=== PATIENT | male | born 1975 | race Caucasian/White ===

== ENCOUNTER → 2017-11-14 | Outpatient (CLI) | payer MEDICARE ==
[~2017-11-14] MED LIST: BACLOFEN 10MG T10 MG PO; BP MED; CYMBALTA30 MG PO; DILAUDID 2 MG TA2 MG PO; DILAUDID2 MG PO; DOLOPHINE HCL10 MG PO; DOLOPHINE HCL5 MG PO; DOXYCYCLINE 10100 M1 PO; ELAVIL PO; FLAGYL 250 MG250 MG PO; FLAGYL500 MG PO; METFORMIN HCL500 MG PO; METHADONE HCL 110 M1 PO; NORCO 5-325 TA1 EACH PO; NOVOLOG100 UNIT/1 SUBQ; OXYCODONE HCL5 M1 PO; PREDNISOLONE; PREDNISONE PO; REMICADE IV; STELARA45 MG/0.5 IV; VITAMIN D1000 UNI1 PO; VOLTAREN100 GM TP; XIFAXAN 200 MG200 M1 PO
--- NOTE | 2017-11-19 07:21 | PAINCON ---
[address] [address] PAIN MANAGEMENT CONSULTATION Name: ULYSSES LOCKETT JR [id number] Admission: 11/14/17 Attend Phys: Patria Zuñiga Discharge: Date of : 79 Report #: [id number] THIS REPORT FOR: //name// CC: Valdo Desai DATE OF SERVICE: 11/14/2017 The patient is a 42-year-old gentleman, typically treated for Crohn disease and rheumatoid arthritis affecting knees, hips and wrists, requiring high risk complex medication management. Last seen in the pain clinic 09/19/2017. I continued the patient on baseline medication including methadone 10 mg 2 in the morning, 1 at noon, and 2 at night; hydromorphone 2 mg b.i.d. for breakthrough pain. Started baclofen 10 mg t.i.d. for some ongoing spasm. He returns to pain clinic today. We had a prolonged visit, greater than 30 minutes was spent with the patient today reviewing therapeutic options and discussing concern for increasing depression. The patient notes he has been having some increasing abdominal issues recently, increasing abdominal pain and blood in the stool. His disease modifying agents including Remicade and Humira have been unchanged. He does note that his mother with whom he has close contact notes he has been more "mancilla" lately. 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 His mother is active in their life pretty much daily. He himself feels that he is a little more depressed and feeling anxious. He notes his abdominal pain remains unchanged and relatively problematic. He thinks that the baclofen may be helping a little bit with the prior noted spasm issues. He rates his subjective pain score a 6 on the Visual Analog Scale. Feels medication probably provides about 50% improvement of his pain and functional status. PHYSICAL EXAMINATION: Shows 6 feet, 2 inches, 244 pound gentleman, BMI is relatively stable at 31.4 kg per meter squared. Blood pressure 126/90, pulse 92, respirations 16. Alert and oriented to person, place and time, judged to be a reasonable historian. Rises from chair using armrest, moderately antalgic gait, diffuse abdominal tenderness. No discrete focal trigger points are noted. We reviewed the fact that opiate medications are being used to provide analgesia adequate to support activities of daily living, not attempting to achieve a specific pain score on the 0-10 Visual Analog Scale. The current opiate medications are providing sufficient analgesia to allow the patient to participate in activities of daily living. The patient is not exhibiting any aberrant behavior suggestive of drug diversion. The patient is not having any adverse reactions to medications. The patient is not suffering from daytime somnolence or mental acuity changes. The patient is managing [place] [address] PAIN MANAGEMENT CONSULTATION Name: ULYSSES LOCKETT JR Room: [facility]#: [id number] Admission: 11/14/17 Attend Phys: Patria Zuñiga Discharge: Date of : 79 Report #: [id number] constipation with appropriate uvdw-zxg-fdyjxth agents and dietary considerations. The patient was counseled on concern for caution with operating a motor vehicle while using opiate medications. A physical exam was performed and the patient's functional status was evaluated. All patients with back pain were advised against the bed rest greater than 4 days and were advised to return to normal activities. Pain score assessment was noted and the treatment plan was reviewed with the patient. All current medications, both prescribed and OTC were reviewed and reconciled on the electronic medical record. Tobacco screening was accomplished and smoking cessation was advised when indicated. BMI was noted and diet/exercise modification was recommended for all patients following outside normal parameters. I reviewed with the patient today their responsibilities to safeguard prescription medications, reviewed their responsibility to utilize medications only as prescribed by the physician. They are to seek and receive pain medications only from 1 physician group ( [facility]). They are to use 1 pharmacy and keep the clinic informed if they change pharmacies. Their responsibilities include making followup visits in a timely fashion and to avoid abrupt discontinuation of medication usage. Their responsibilities further include bringing their medications (bottles from the pharmacy with residual pills) to the visit for possible confirmation of pill counts and the patient understands it is their responsibility to submit to random drug screens to ensure both that the medications prescribed are present, and that no other controlled substances are present. All prescriptions provided today were generated electronically. ASSESSMENT: Chronic abdominal pain, rheumatoid arthritis requiring high risk complex medication management, new diagnosis of some ongoing and situational anxiety and depression. RECOMMENDATION: We reviewed the opiate consent to treat contract. It has been greater than a year since our last contract was signed. We reviewed the patient's risks and responsibilities regarding keeping the medication safeguarded, especially with teenage children in the house, risks for opiate habituation, tolerance and overdose. I have renewed hydromorphone 2 mg b.i.d., limit 60 tablets for 30 days; baclofen 10 mg t.i.d. We started Cymbalta 30 mg 1 a day, continue methadone 10 mg 2 in the morning, 1 at noon, and 2 at night. I have taken the liberty of writing for 2 months of current medication. We may increase Cymbalta to 60 mg at next visit if needed. Pain impact score is pretty high, averaging about 59/70. [address] [place] [address] PAIN MANAGEMENT CONSULTATION Name: ULYSSES LOCKETT JR Room: [facility]#: [id number] Admission: 11/14/17 Attend Phys: Patria Zuñiga Discharge: Date of : 79 Report #: [id number] Discharged in good and stable condition after a 25+ minute visit was spent reviewing therapeutic options, new diagnosis of depression and treatment options. Last random drug screen was in March. <ELECTRONICALLY SIGNED> By: Vinayak Desai DO 11/19/17 0721 [id number] Desai DO /nt
== END ==
LOC: M.PC 02:49
DX: K50.90 Crohn's disease, unspecified, without complications (principal); M06.89 Other specified rheumatoid arthritis, multiple sites; F41.9 Anxiety disorder, unspecified; F32.9 Major depressive disorder, single episode, unspecified; Z79.899 Other long term (current) drug therapy

== ENCOUNTER → 2018-01-09 | Outpatient (CLI) | payer MEDICARE ==
--- NOTE | 2018-01-14 08:02 | PAINCON ---
[address] [address] PAIN MANAGEMENT CONSULTATION Name: ULYSSES LOCKETT JR Room: [facility]#: [id number] Admission: 01/09/18 Attend Phys: Patria Zuñiga Discharge: Date of : 79 Report #: [id number] THIS REPORT FOR: //name// CC: Valdo Desai DATE OF SERVICE: 01/09/2018 The patient is a very pleasant 42-year-old gentleman being treated for Crohn's disease, rheumatoid arthritis affecting hands, hips and wrists, requiring complex medication management. Last seen in the Pain Clinic on 11/14/2017, continued on baseline medication. Last random drug screen 04/04/2017 was positive for prescribed medication. The patient is stable on methadone 10 mg, 2 in the morning, 1 at noon, and 2 at night; hydromorphone 2 mg b.i.d. This equates to a supratherapeutic load of opiate, roughly 215 mg MS. Does use Cymbalta 30 mg daily and baclofen for spasm. He returns to the Pain Clinic today noting pain continues to be problematic. Medications are helpful to allow participate in activities of daily living, rates the pain a 4-5 on a VAS, reports "no changes" since her last visit. PHYSICAL EXAMINATION: Shows 6 feet 2 inches, 246-pound gentleman, BMI is 31 kg/m2. Blood pressure 120/78, pulse 89, and respirations 16. Rises from chair using armrest, modestly antalgic gait. Has diffuse tenderness in the wrist, ankles and knees. No discrete trigger points are noted. Gait is minimally antalgic. The patient is status post colectomy with J pouch. He has 15-20 stools a day, often heme positive. There is increasing diabetic neuropathy in his feet. Otherwise, notes he is functional with current medication. When I took over his care, he had been on high dose OxyContin, stated he had a lot of "highs and lows" without medication. He is very stable on the methadone. I talked about trying to wean his opiate load over time, I talked about concerns for opiate-induced hyperalgesia. I have taken the liberty of continuing current prescription medication unchanged, methadone 10 mg 2 in the morning, 1 at noon, and 2 at night, though suggest he try weaning 1 tablet, 2 tablets in the morning, 1 at noon and 1 at night over the next month. We can continue weaning further as able. Discharged in good and stable condition. Follow up in 2 months for reevaluation. <ELECTRONICALLY SIGNED> By: Vinayak Desai DO 01/14/18 0802 1535 1942Vinayak Desai DO /nt
== END ==
LOC: M.PC 00:32
DX: M19.042 Primary osteoarthritis, left hand (principal); M19.041 Primary osteoarthritis, right hand; M16.0 Bilateral primary osteoarthritis of hip; M19.032 Primary osteoarthritis, left wrist; M19.031 Primary osteoarthritis, right wrist; K50.90 Crohn's disease, unspecified, without complications; Z79.899 Other long term (current) drug therapy

== ENCOUNTER → 2018-03-06 | Outpatient (CLI) | payer MEDICARE ==
--- NOTE | 2018-03-07 07:13 | PAINCON ---
[address] [address] PAIN MANAGEMENT CONSULTATION Name: ULYSSES LOCKETT JR [id number] Admission: 03/06/18 Attend Phys: Patria Zuñiga Discharge: Date of : 79 Report #: [id number] THIS REPORT FOR: //name// CC: Valdo Desai DATE OF SERVICE: 03/06/2018 PAIN CLINIC NOTE The patient is a very pleasant 42-year-old gentleman, has been under my care for the past decade, initially seen in 2007. He has Crohn's disease, rheumatoid arthritis affecting his hands, hips and wrists, requires complex medication management. When he came to me, he was utilizing OxyContin 40 mg t.i.d. roughly equivalent to 180 mg of morphine. We have rotated medication over time. Currently, he is utilizing methadone 10 mg 2 in the morning, 1 at noon, and 2 at night, this is equivalent to an ongoing supratherapeutic load of opiate around 200 mg. With this; however, he has been remarkably stable, does not have the "highs and lows" he had with the OxyContin. He is quite functional. He is a single parent raising 2 sons. I believe one starting the eighth grade and one in high school. 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 He has been medically disabled for quite some time due to Crohn's. He has a 15-20 liquid stools a day. He has had multiple abdominal surgeries. He has been stable on baseline narcotic unchanged for some time. He is seen today in the company of his mother who is supportive. We had a prolonged visit today, greater than 50% of the 30-minute visit was spent counseling the patient, discussing therapeutic options and ongoing care. The patient tells me that his subjective pain score is 5 on a VAS. He is changing his disease modifying agent to Stelara. He is hopeful that this will give him a little better control. PHYSICAL EXAMINATION: Shows 6 feet 2 inches, 240 pounds gentleman, BMI is 31 kilograms per meter squared, blood pressure 130/92, pulse 102, and respirations 16. Alert and oriented to person, place and time, judged to be a reasonable historian. Rises from chair using armrest. Gait is generally tandem. Diffuse tenderness across the low back. There is little osseous hypertrophy in the knees. Abdominal exam is deferred. We reviewed the fact that opiate medications are being used to provide analgesia adequate to support activities of daily living, not attempting to achieve a specific pain score on the 0-10 Visual Analog Scale. The current opiate medications are providing sufficient analgesia to allow the patient to participate in activities of daily living. The patient is not exhibiting any aberrant behavior suggestive of drug diversion. The patient is not having any adverse reactions to medications. The patient [place] [address] PAIN MANAGEMENT CONSULTATION Name: ULYSSES LOCKETT JR Room: [facility] Mami#: [id number] Admission: 03/06/18 Attend Phys: Patria Zuñiga Discharge: Date of : 79 Report #: [id number] somnolence or mental acuity changes. The patient is managing opiate-induced constipation with appropriate eqoy-zdv-esrvxim agents and dietary considerations. The patient was counseled on concern for caution with operating a motor vehicle while using opiate medications. A physical exam was performed and the patient's functional status was evaluated. All patients with back pain were advised against the bed rest greater than 4 days and were advised to return to normal activities. Pain score assessment was noted and the treatment plan was reviewed with the patient. All current medications, both prescribed and OTC were reviewed and reconciled on the electronic medical record. Tobacco screening was accomplished and smoking cessation was advised when indicated. BMI was noted and diet/exercise modification was recommended for all patients following outside normal parameters. I reviewed with the patient today their responsibilities to safeguard prescription medications, reviewed their responsibility to utilize medications only as prescribed by the physician. They are to seek and receive pain medications only from 1 physician group ( [facility]). They are to use 1 pharmacy and keep the clinic informed if they change pharmacies. Their responsibilities include making followup visits in a timely fashion and to avoid abrupt discontinuation of medication usage. Their responsibilities further include bringing their medications (bottles from the pharmacy with residual pills) to the visit for possible confirmation of pill counts and the patient understands it is their responsibility to submit to random drug screens to ensure both that the medications prescribed are present, and that no other controlled substances are present. All prescriptions provided today were generated electronically. The patient does use nicotine via tobacco chew, was cautioned about this and urged discontinuation. We did get a buccal swab today. No aberrant behavior suggestive of drug diversion, simply complying with opiate consent to treat contract. It has been greater than a year since last drug screen. ASSESSMENT: Chronic abdominal pain, Crohn's disease, rheumatoid arthritis requiring complex medication management. Rheumatoid arthritis affecting hands, hips and wrists. RECOMMENDATION: Long discussion with the patient and his mother today. We would like to continue methadone 10 mg 2 in the morning, 1 at noon and 2 at night. Hopefully, after the patient rotates his Crohn's agent to [facility], this may help some with the rheumatoid arthritis pain. He can drop his methadone down to 1 in the morning, 1 at noon and 2 at night. We will continue hydromorphone rare use, 2 mg b.i.d., limit 60 tablets for 30 days. Continue Cymbalta unchanged 30 mg daily, baclofen 10 mg t.i.d. [place] [address] PAIN MANAGEMENT CONSULTATION Name: ULYSSES LOCKETT JR Room: [facility]#: [id number] Admission: 03/06/18 Attend Phys: Patria Zuñiga Discharge: Date of : 79 Report #: [id number] The patient discharged in good stable condition today. I have taken the liberty of writing for 3 months of current medication to enable him to get in to Dr. Bishnu Nava's clinic. Again, a prolonged visit today, greater than 50% of this near 30-minute visit spent reviewing the patient's medical history, discussing risks, benefits of opiate use, concerns for supratherapeutic opiate load, desire to try and wean methadone as able, we did get a buccal swab today. No aberrant behavior suggestive of drug diversion. <ELECTRONICALLY SIGNED> By: Vinayak Desai DO 03/07/18 0713 1519 [id number] Desai DO /nt
== END ==
LOC: M.PC 04:01
DX: K50.90 Crohn's disease, unspecified, without complications (principal); M06.89 Other specified rheumatoid arthritis, multiple sites; G89.29 Other chronic pain; R10.9 Unspecified abdominal pain; Z79.899 Other long term (current) drug therapy

== ENCOUNTER → 2018-05-30 | Outpatient (CLI) | payer MEDICARE ==
--- NOTE | 2018-06-05 16:41 | PAINCON ---
[address] [address] PAIN MANAGEMENT CONSULTATION Name: ULYSSES LOCKETT JR Room: [facility].#: [id number] Admission: 05/30/18 Attend Phys: Kaitlin Nava MD Discharge: Date of : 79 Report #: [id number] THIS REPORT FOR: //name// CC: Valdo Nava DATE OF SERVICE: 05/30/2018 FOLLOWUP COMPLAINT: Here for medication renewal. FOLLOWUP HISTORY: The patient is a 42-year-old gentleman who has been followed in the pain clinic because of chronic pain involving Crohn's disease and diabetes. The patient has been followed by Dr. Vinayak Desai for about a decade. He was initially seen in 2007. He has Crohn's disease and rheumatoid arthritis affecting his hands, hips, wrists, has required complex medical management. He has utilized OxyContin 40 mg t.i.d. in the past. This has been changed. He feels that methadone is more effective. It last longer with less of the variation in pain. He has been using methadone 10 mg 2 in the morning, 1 at noon, and 2 mg at night. He has been using this dose, which is about 200 mg morphine equivalents; however, he has been stable with this medication. He is a single parent rising 2 sons. He tries to remain active. Does have a J pouch. Some of his medications "come out the same way they went in." Has some baseline back pain as a result of his Crohn's disease. His mother is present. He has noted some problems with numbness in his feet. He is not having problems with his hands. He feels that he is in a conundrum. He is in a catch 22. If he takes his medications, he notes some upset in his GI tract without them, pain is even worse. States that he had a colonoscopy a few months ago. Continues to have bloody stools. ALLERGIES: LORAZEPAM, MERCAPTOPURINE, FENTANYL. CURRENT MEDICATIONS: Baclofen 10 mg tablets t.i.d., Voltaren gel 5 times daily, Dilaudid 2 mg b.i.d., metformin 500 mg b.i.d., methadone 10 mg 2 tablets a.m. 1 midday and 2 at bedtime, Naresh. PAST MEDICAL HISTORY: 1. Ulcerative colitis with J pouch. 2. Colon surgery. 3. Multiple bowel problems. SOCIAL HISTORY: He is . He is a nonsmoker. Denies use of alcohol. LABORATORY DATA: No new lab values were available at the time of our interview. PAIN CLINIC ASSESSMENT: [place] [address] PAIN MANAGEMENT CONSULTATION Name: ULYSSES LOCKETT JR Room: [facility]#: [id number] Admission: 05/30/18 Attend Phys: Kaitlin Nava MD Discharge: Date of : 79 Report #: [id number] 1. History of osteoarthritis. Does have arthritic changes in his hands and hips. 2. Height 6 feet 2 inches, weight 237 pounds, BMI is 30.2. 3. Vital signs: Blood pressure 137/94. heart rate 114, respiratory rate 16, room air saturation 99%, temperature 97.6. Pain score 4-5/10 can rise to a level of 8-9. 4. Fall risk. The patient has not fallen in the last 3 months. 5. Blood thinner. The patient is not on a blood thinning medication. 6. Hypertension. The patient states she does suffer from hypertension, but is not taking medications at this point. 7. Opioid medications. The patient has been using opioid medications to help control his pain, [facility]. 8. Risk assessment tool. 9. Functional assessment tool. 10. Recreational drug use. The patient denies use of recreational drugs. 11. Tobacco: The patient denies use of tobacco, but does chew tobacco, has chewed tobacco since age 20. 12. Alcohol. Denies use of alcoholic beverages. PHYSICAL EXAMINATION: GENERAL: The patient is a well-developed, well-nourished white male. Appears his stated age. He is alert and oriented x 3. Affect is appropriate. Speech is fluent. HEENT: Normocephalic, atraumatic. Extraocular muscles intact. Sclerae nonicteric. Hearing within normal limits. Mucous membranes are moist. NECK: With good range of motion without bruits or JVD. No adenopathy. CHEST: Clear to auscultation. HEART: Regular rate. S1, S2. ABDOMEN: Slightly protuberant. MUSCULOSKELETAL: Without scoliosis, kyphosis or lordosis. Upper extremity muscle strength is judged to be 5/5 for the major muscle groups. Lower extremity muscle strength is judged to be 5/5 for the lower extremity. The patient does have some perception of numbness in his feet. States that he is noticing an escalating or climbing, a numbing sensation of his legs in a stocking distribution at this juncture. IMPRESSION: 1. Chronic pain treated with a complex medical regimen with history of Crohn's disease/ulcerative colitis. 2. Ulcerative colitis with J pouch. 3. Colon surgery. 4. Multiple bowel problems. RECOMMENDATIONS: We discussed treatment option with the patient, we will continue with his current medical regimen. He does have quite a complex regimen. He feels that the oxycodone in the past was helpful. It cause less [facility] [address] [place] [address] PAIN MANAGEMENT CONSULTATION Name: ULYSSES LOCKETT Ligia MALDONADO Room: [facility]#: [id number] Admission: 05/30/18 Attend Phys: Kaitlin Nava MD Discharge: Date of : 79 Report #: [id number] discomfort with the stomach, but overall he feels that things are going reasonably well with the methadone medication. We will continue with this medication. He will call us if he has any problems. We would like to thank you for letting us participate in his care. We hope he continues to improve. <ELECTRONICALLY SIGNED> By: Kaitlin Nava MD 06/05/18 1641 [id number]. Bishnu Nava MD /nt
== END ==
LOC: M.PC 03:19
DX: G89.29 Other chronic pain (principal); K51.90 Ulcerative colitis, unspecified, without complications; Z79.899 Other long term (current) drug therapy

== ENCOUNTER → 2018-08-20 | Outpatient (CLI) | payer MEDICARE ==
--- NOTE | 2018-08-21 15:35 | PAINCON ---
[facility] [address] [place] [address] PAIN MANAGEMENT CONSULTATION Name: ULYSSES LOCKETT JR [facility] [id number] Admission: 08/20/18 Attend Phys: Kaitlin Nava MD Discharge: Date of : 77 Report #: [id number] THIS REPORT FOR: //name// CC: Valdo Nava DATE OF SERVICE: 08/20/2018 REASON FOR VISIT: Crohn's disease. HISTORY: The patient is a 42-year-old gentleman who has a history of Crohn's disease. He also has diabetes. He has been followed in the pain clinic since 2007. He also has rheumatoid arthritis affecting his hands, hips, wrist and requires complex medical management. Finds that OxyContin has been used in the past. He was up to 40 mg t.i.d. He feels that methadone has been more effective. Feels that it has been more efficacious. Finds that use of this in the morning, noon and at night is beneficial. He is a single parent, raising 2 sons. He tries to remain active. He does have a J pouch. States that his medications has some problems with absorption. "Oftentimes comes out the way it went in". Has some baseline back pain as a result of the Crohn's disease. Has some numbness in his feet. Notes that he is in a conundrum. If he takes his medications, he notes that some GI upset without them his pain is worse. ALLERGIES: LORAZEPAM, MERCAPTOPURINE, and FENTANYL. CURRENT MEDICATIONS: Baclofen 10 mg p.o. t.i.d., Voltaren gel 5 mg daily, Dilaudid 2 mg b.i.d., metformin 500 mg b.i.d., methadone 10 mg 2 tablets q.a.m., one midday, 2 at bedtime, Stelara. PAST MEDICAL HISTORY: Ulcerative colitis with J pouch. ASSESSMENT: 1. Colon surgery. 2. Multiple bowel problems. PAIN CLINIC ASSESSMENT: 1. History of osteoarthritis. The patient does have osteoarthritic changes in his hands and hips. 2. Height 6 feet 2 inches, weight 245 pounds, BMI is 31.5. 3. Vital signs: Blood pressure 130/99, heart rate 94, respiratory rate 16, room air saturation 95%. Temperature 98.7. 4. Pain intensity: 4/10. 5. Fall risk. The patient has not fallen in the last 3 months. 6. Blood thinner. The patient is not on a blood thinning medication. 7. Hypertension. The patient has [place] [address] PAIN MANAGEMENT CONSULTATION Name: ULYSSES LOCKETT JR Room: [facility]#: [id number] Admission: 08/20/18 Attend Phys: Kaitlin Nava MD Discharge: Date of : 77 Report #: [id number] 8. Opioids greater than 6 weeks, the patient refuses medication from one source, the Pain Clinic. 9. Risk assessment tool. 10. Functional assessment tool. 11. Recreational drug use. The patient denies use of recreational drugs. 12. Tobacco: The patient does chew tobacco. We discussed the possible complication with chewing tobacco, which could cause mouth cancers. 13. Alcohol: The patient denies frequent use of alcoholic beverages. PHYSICAL EXAMINATION: GENERAL: The patient is a well-developed, well-nourished white male. Appears his stated age. He is alert and oriented x 3. His affect is appropriate. Speech is fluent. HEENT: Normocephalic, atraumatic. Extraocular eye muscles intact. Sclerae nonicteric. Hearing is within normal limits. Mucous membranes are moist. NECK: With good range of motion without bruits or JVD. No adenopathy. CHEST: Clear to auscultation. HEART: Regular rate. S1, S2. ABDOMEN: Nontender, slightly protuberant. MUSCULOSKELETAL: Without scoliosis, kyphosis or lordosis. Upper extremity muscle strength is judged to be 5/5 for the major muscle groups. Lower extremity muscle strength is judged to be 5/5 for the lower extremity. The patient has a perception of numbness in his feet. Feels that this is getting worse. Has numbness in his toes. Notes that there is an escalating numbing sensation in his legs in a stocking glove distribution. IMPRESSION: 1. Chronic pain treated with a complex medical regimen of opioid medications given the patient's history of Crohn's disease and ulcerative colitis. 2. Ulcerative colitis with J pouch. 3. Colonoscopy in the near future. The patient has noted some blood in his stool. 4. Precancerous state. The patient is to undergo the colonoscopy to be evaluated. 5. Multiple bowel problems. RECOMMENDATIONS: We discussed treatment options with the patient. At this juncture, we will continue with his medications. A script for his medications of hydromorphone 2 mg 1 p.o. b.i.d., baclofen 10 mg 1 p.o. t.i.d., methadone 10 mg 2 tablets a.m. one tablet at noon, and 2 tablets at bedtime. A script for the patient's medications have been written. He will call us if he has any [place] [address] PAIN MANAGEMENT CONSULTATION Name: ULYSSES LOCKETT JR Room: [facility].#: [id number] Admission: 08/20/18 Attend Phys: Kaitlin Nava MD Discharge: Date of : 77 Report #: [id number] problems. We would like to thank you for letting us participate in his care. We hope he continues to improve. <ELECTRONICALLY SIGNED> By: Kaitlin Nava MD 08/21/18 1535 [id number]. Bishnu Nava MD /nt
== END ==
LOC: M.PC 04:35
DX: K50.90 Crohn's disease, unspecified, without complications (principal); G89.29 Other chronic pain; Z79.891 Long term (current) use of opiate analgesic

== ENCOUNTER → 2018-11-12 | Outpatient (CLI) | payer MEDICARE, MEDICAID ==
[~2018-11-12] MED LIST changes: +CYMBALTA20 MG PO; +FLAGYL500 M1 PO; +PREDNISONE 10 M10 MG PO
--- NOTE | ~2018-11-12 | PAINCON ---
[address] [address] PAIN MANAGEMENT CONSULTATION Name: LUYSSES LOCKETT JR [facility] [id number] Admission: 11/12/18 Attend Phys: Kaitlin Nava MD Discharge: Date of : 77 Report #: [id number] THIS REPORT FOR: //name// CC: Valdo Nava DATE OF SERVICE: 11/12/2018 FOLLOWUP HISTORY: Here for medications. HISTORY OF PRESENT ILLNESS: The patient is a 43-year-old gentleman who has been followed in the pain clinic. As you recall, he has Crohn's disease. He also has diabetes. He has been followed in the clinic since 2007. Has some problems with rheumatoid arthritis. He feels that this is affecting his hands, hips, wrists and he has a rather complex medical management program. He feels that the hydromorphone continues to be helpful. Methadone 3 times daily is helpful and baclofen is beneficial as well. He has a history of increasing numbness and decreased sensitivity in his feet in a stocking distribution. States that he has had a blemish on his feet. His mother continues to watch it. He continues to make sure that it is healing well. He states his father has diabetes. His mother is really in tune to diabetic problems and helps him keep a watch over his condition. He does have a J pouch in place. He does take metformin. States that this medication sometimes goes right through without significant change or absorption. He has had some elevated blood sugars. He feels that he may need to start insulin use. Did note some blood in his stool some weeks ago. Overall, things have seemed to be better. He has undergone a colonoscopy to monitor his condition. He has returned today for renewal of his medications. He does chew tobacco. We discussed the ramifications of tobacco use, which could include oral cancers as well as vasoconstriction from nicotine. ALLERGIES: LORAZEPAM, MERCAPTOPURINE, FENTANYL. MEDICATIONS: Baclofen 10 mg t.i.d., Voltaren gel daily, Dilaudid 2 mg b.i.d., metformin 500 mg b.i.d., methadone 10 mg 2 tablets a.m., one tablet midday 2 tablets at bedtime, and Stelara. PAIN CLINIC ASSESSMENT/PQRS: 1. The patient has some osteoarthritic changes involving his hands, hips. He is not being treated for rheumatoid arthritis. He states that family members have rheumatoid arthritis. 2. Height 6 feet 2 inches, weight 252 pounds, BMI 32. 3. Vital Signs: Blood pressure 143/91, heart rate 73, respiratory rate 16, room air saturation 95%, temperature 97.7. 4. Pain intensity 6-7 at this juncture. May rise to the level of 9-10 when [place] [address] PAIN MANAGEMENT CONSULTATION Name: ULYSSES LOCKETT JR Room: [facility]#: [id number] Admission: 11/12/18 Attend Phys: Kaitlin Nava MD Discharge: Date of : 77 Report #: [id number] 5. Fall risk. The patient has not fallen in the last 3 months. 6. Blood thinner. The patient is not on blood thinning medication. 7. Hypertension. The patient is not being treated for hypertension. 8. Opioids greater than 6 weeks. The patient received medication from one source, the pain clinic. 9. Risk assessment tool, low for opioid use. 10. Functional assessment tool. 11. Recreational drug use. The patient denies use of recreational drugs. 12. Tobacco: The patient does chew tobacco. 13. Alcohol: The patient denies use of alcoholic beverages. PHYSICAL EXAMINATION: GENERAL: The patient is a well-developed, well-nourished white male. Appears his stated age. He is alert and oriented x 3. His affect is appropriate. Speech is fluent. HEENT: Normocephalic, atraumatic. Extraocular eye muscles are intact. Sclerae nonicteric. Hearing is within normal limits. NECK: With good range of motion. No JVD or bruits. No adenopathy. CHEST: Clear to auscultation. HEART: Regular rate. S1, S2. ABDOMEN: Nontender, slightly protuberant. The patient states he has a J pouch in place. MUSCULOSKELETAL: Without significant scoliosis, kyphosis or lordosis. Upper extremity muscle strength is judged to be 5/5 for the major muscle groups. Lower extremity, 5/5 for the lower extremity. The patient has some perception of decreased sensitivity in his feet. He has a stocking distribution. He has a healing ulcer in the right foot under the ball of his foot. He states that it continues to improve. Escalating and increasing numbness in his legs. IMPRESSION: 1. Chronic pain treated with complex medical regimen. 2. History of Crohn's disease/ulcerative colitis. 3. Ulcerative colitis with J pouch. 4. Colonoscopy with finding of blood in his stools in the past. 5. Precancerous state and being followed by his GI doctor. 6. Multiple bowel problems. RECOMMENDATIONS: We discussed treatment options with the patient. We will continue with his current medication. He feels that this medications are helpful. Enlightened the patient on the problems with use of tobacco. Use of this can cause oral problems with the possible development of cancers as well as nicotine can cause vasoconstriction. Encouraged the patient to continue to monitor is extremities. Encouraged the patient to monitor his blood sugar. I explained to the patient that the technology for monitoring blood sugars using a smart device seems to be available. This might be something that might be helpful for him. A script for his medications of methadone 10 mg at 2:00 a.m., [place] [address] PAIN MANAGEMENT CONSULTATION Name: CATHRYNULYSSES JR Room: [facility]#: [id number] Admission: 11/12/18 Attend Phys: Kaitlin Nava MD Discharge: Date of : 77 Report #: [id number] 1:00 noon, and 2 at bedtime, Dilaudid 2 mg 1 p.o. b.i.d., total of 60, baclofen 10 mg 1 p.o. t.i.d. have been written. He will call us if he has any concerns. We would like to thank you for letting us participate in his care. We hope he continues to improve. By: [id number]. Bishnu Nava MD /nt
== END ==
LOC: M.PC 08:00
DX: G89.29 Other chronic pain (principal); R19.4 Change in bowel habit; K51.90 Ulcerative colitis, unspecified, without complications; I10 Essential (primary) hypertension; Z87.19 Personal history of other diseases of the digestive system; Z79.899 Other long term (current) drug therapy

== ENCOUNTER → 2019-02-04 | Outpatient (CLI) | payer MEDICARE, MEDICAID ==
--- NOTE | ~2019-02-04 | PAINCON ---
[address] [address] PAIN MANAGEMENT CONSULTATION Name: ULYSSES LOCKETT JR [id number] Admission: 02/04/19 Attend Phys: Kaitlin Nava MD Discharge: Date of : 77 Report #: [id number] THIS REPORT FOR: //name// CC: Valdo Nava DATE OF SERVICE: 02/04/2019 CHIEF COMPLAINT: Here for medication renewal. I have had a little bit of scratchiness in my throat. I have seen by doctor for that history. HISTORY OF PRESENT ILLNESS: The patient is a 43-year-old gentleman who has been followed in the pain clinic for some time because of chronic pain. He does have Crohn's disease. Notes that this pain causes problems, not only with his stomach, but he feels that he has problems with arthritic types of changes. Has some pain in his knees, joints and feels overall that things are going reasonably well. He is somewhat concerned that he does chew tobacco. He has had a little bit of congestion in the back of his throat. Finds a little bit hard to clear. He is contemplating seen his primary physician in that regard. Feels his medications are working reasonably well. Rates his pain as a 4/10 today. It can rise to the level of T9-T10. Most of the time 10 and does remain in the area of 3-4. He has continued internal bleeding. Notes some bleeding in his stools. He states that this is what he has noticed as a result of his chronic Crohn's disease. He feels that the methadone medication is helpful. Feels that the baclofen helps as well. ALLERGIES: LORAZEPAM, MERCAPTOPURINE, and FENTANYL. CURRENT MEDICATIONS: Baclofen 10 mg t.i.d., Voltaren gel daily, Dilaudid 2 mg b.i.d., metformin 500 mg b.i.d., methadone 10 mg 2 tablets a.m. one tablet midday, 2 tablets at bedtime, Stelara. PAIN CLINIC ASSESSMENT/PQRS: 1. Osteoarthritis change involving his hands, hips and knees. The patient is not being treated for rheumatoid arthritis. States family members to have rheumatoid arthritis. He has not been tested. 2. Height 6 feet 2 inches, weight 253 pounds, BMI is 32.6. 3. VITAL SIGNS: Blood pressure 140/88, heart rate 103, respiratory rate 16, room air saturation 95%, temperature 97.4. 4. Pain score 4/10. 5. Fall history. The patient has not fallen in the last 3 months. 6. Blood thinner. The patient is not on a blood thinning medication. 7. Opioid greater than 6 weeks. The patient receives medication from one source pain clinic. 8. Risk assessment tool, low for use of opioids. 9. [place] [address] PAIN MANAGEMENT CONSULTATION Name: ULYSSES LOCKETT JR Room: [facility]#: [id number] Admission: 02/04/19 Attend Phys: Kaitlin Nava MD Discharge: Date of : 79 Report #: [id number] 10. Recreational drug use. The patient denies use of recreational drugs. 11. Tobacco: The patient does chew tobacco. We have discussed the benefits of tobacco cessation with the patient. 12. Alcohol. The patient denies use of alcoholic beverages. PHYSICAL EXAMINATION: GENERAL: The patient is well-developed, well-nourished white male. Appears his stated age. He is alert and oriented x 3. Affect is appropriate. Speech is fluent. HEAD, EYES, EARS, NOSE, AND THROAT: Normocephalic, atraumatic. Extraocular eye muscles intact. Sclerae nonicteric. Mucous membranes are moist. The patient states he does have a little bit of trouble with swallowing. No obvious lesions are seen in the posterior portion of the patient's pharynx. NECK: With good range of motion. No JVD. No adenopathy. CHEST: Clear to auscultation. HEART: Regular rate. S1, S2. ABDOMEN: Nontender. Bowel sounds are present. The patient has a J-pouch in place. MUSCULOSKELETAL: Without significant scoliosis, kyphosis or lordosis. Upper extremity muscle strength is judged to be 5/5 for the major muscle groups in lower extremity, 5/5 for the lower extremity. The patient has decreased sensitivity in his feet. Stocking glove distribution. Has had an ulcer on his right foot , which continues to improve. Escalating numbness in his legs. IMPRESSION: 1. Chronic pain treated with complex medical regimen. 2. History of Crohn's disease with ulcerative colitis. 3. Ulcerative colitis J-pouch. 4. Colonoscopy with finding of blood in the stool in the past. 5. Multiple bowel problems. 6. Feeling of inability to totally clear his throat. 7. The patient will follow up with his primary doctor. RECOMMENDATIONS: We discussed treatment options with the patient. Risks and benefits of opioid medications were discussed. The patient is aware that these medications can be helpful. He does have some congestion in the back of his throat. He will follow up with his primary in that regard. A script for his medications has been written. The patient will continue to monitor his blood sugars. He will continue to monitor his feet for possible diabetic changes. A script for his medications of baclofen 10 mg 1 p.o. t.i.d., Dilaudid 2 mg b.i.d. have been written. The patient will also continue with use of methadone 2 tablets a.m. one tablet at noon, and 2 tablets at bedtime, 10 [place] [address] PAIN MANAGEMENT CONSULTATION Name: ULYSSES LOCKETT JR Room: [facility]#: [id number] Admission: 02/04/19 Attend Phys: Kaitlin Nava MD Discharge: Date of : 79 Report #: [id number] We would like to thank you for letting us to participate in his care. We hope he continues to improve. By: [id number]. Bishnu Nava MD /STEVE
== END ==
LOC: M.PC 04:52
DX: G89.29 Other chronic pain (principal); K50.90 Crohn's disease, unspecified, without complications; M17.0 Bilateral primary osteoarthritis of knee; M16.0 Bilateral primary osteoarthritis of hip; F17.220 Nicotine dependence, chewing tobacco, uncomplicated; Z88.8 Allergy status to other drugs, medicaments and biological substances; Z79.891 Long term (current) use of opiate analgesic; Z79.84 Long term (current) use of oral hypoglycemic drugs; Z68.32 Body mass index [BMI] 32.0-32.9, adult

== ENCOUNTER → 2019-04-29 | Outpatient (CLI) | payer MEDICARE, MEDICAID ==
--- NOTE | ~2019-04-29 | PAINCON ---
[address] [address] PAIN MANAGEMENT CONSULTATION Name: ULYSSES LOCKETT JR Room: [facility]#: [id number] Admission: 04/29/19 Attend Phys: Kaitlin Nava MD Discharge: Date of : 79 Report #: [id number] THIS REPORT FOR: //name// CC: Valdo Nava DATE OF SERVICE: 04/29/2019 CHIEF COMPLAINT: Here for pain medication. I was in the hospital for 2 days at [facility]. HISTORY: The patient is a 43-year-old gentleman who has been followed in the Pain Clinic because of chronic pain. He has a history of Crohn's disease. States that he had an episode where he "almost busted." He was taken by ambulance to [facility]. Stated that he had pain, which was horrible for about 2 days. He was started on medication. He is taking Flagyl to help. He has noted some elevations of his blood sugars, which were in the 400s while he was in the hospital. States that they have come down somewhat at this juncture. He has had surgery in the past. Has had his colon removed. He is unable to absorb the metformin. States the pill comes out the same way it went in. He has been started on insulin. He is beginning to note some changes in his feet and legs associated with the diabetes. He has returned today for renewal of his medications. He continues to chew tobacco. He rates his pain as a 7/10. Feels that the methadone medication is helpful. He is not taking baclofen at this juncture. Notes the pain is worse with activity, cold, walking, sitting, standing, climbing stairs, bending and lifting. Pain improved with the use of methadone as well as with rest. He has taken his medication as prescribed. ALLERGIES: LORAZEPAM, MERCAPTOPURINE, FENTANYL. CURRENT MEDICATIONS: Voltaren gel daily, Dilaudid 2 mg b.i.d., metformin 500 mg b.i.d., methadone 10 mg 2 tablets a.m., one tablet midday, 2 tablets at bedtime, Stelara. PAIN CLINIC ASSESSMENT/PQRS: 1. The patient has some changes in his hands, hips and knees. The patient states that he is being treated for rheumatoid arthritis. 2. Height 6 feet 2 inches, weight 244 pounds, BMI is 31. 3. Vital Signs: Blood pressure 140/97, heart rate 103, respiratory rate 20, room air saturation 96%, temperature 98.6. 4. Pain intensity, 7/10. 5. Fall history: The patient has not fallen in the last 3 months. 6. Blood thinner. The patient is not on a blood thinning medication. 7. Hypertension. The patient is not [place] [address] PAIN MANAGEMENT CONSULTATION Name: ULYSSES LOCKETT JR Room: [facility]#: [id number] Admission: 04/29/19 Attend Phys: Kaitlin Nava MD Discharge: Date of : 79 Report #: [id number] 8. Risk assessment tool, low for opioid use. 9. Functional assessment tool. 10. Recreational drug use. The patient denies use of recreational drugs. 11. Tobacco: The patient does chew tobacco. Discussed the benefits of smoking cessation. 12. Alcohol: The patient denies use of alcoholic beverages. PHYSICAL EXAMINATION: GENERAL: The patient is a well-developed, well-nourished white male. Appears his stated age. He is alert and oriented x 3. Affect is appropriate. Speech is fluent. HEENT: Normocephalic, atraumatic. Extraocular eye muscles intact. Sclerae nonicteric. Mucous membranes are moist. NECK: Without adenopathy or JVD. CHEST: Clear to auscultation. HEART: Regular rate. S1, S2. ABDOMEN: Tender. Bowel sounds present. The patient has some discomfort in the right lower quadrant. Has a J pouch. MUSCULOSKELETAL: Without significant scoliosis, kyphosis or lordosis. Upper extremity muscle strength is judged to be 5/5 for the major muscle groups in the upper extremity. Lower extremity, 5/5 for the muscles in the lower extremity. He is now beginning to note some changes in his feet with a stocking glove distribution of neuropathy. IMPRESSION: 1. Chronic pain treated with complex medical regimen. 2. History of Crohn's disease with ulcerative colitis. 3. Ulcerative colitis J pouch. 4. Colostomy with finding of blood in the stool in the past. 5. Multiple bowel problems. 6. Feeling of inability to totally clear his throat. 7. The patient continues to follow up with his primary doctor. RECOMMENDATIONS: We discussed treatment options with the patient. At this juncture, we will continue with his medications. A script for his medications of methadone t.i.d. has been written. He will continue with 2 tablets in the morning, 1 at afternoon and 2 at bedtime. The patient also will continue with Dilaudid 2 mg 1 p.o. b.i.d. He will call us if he has any concerns. The patient is aware that opioid medications can be problematic for some. He states that he is using the medication as prescribed. He is aware that long-term use of this medication can become less effective due to tolerance. Keeps his medications in a guarded area. He is a bit nervous and may have to undergo additional surgery [place] [address] PAIN MANAGEMENT CONSULTATION Name: ULYSSES LOCKETT Ligia Room: [facility]#: [id number] Admission: 04/29/19 Attend Phys: Kaitlin Nava MD Discharge: Date of : 79 Report #: [id number] We would like to thank you for letting us participate in his care. He will call us if he has any concerns. By: [id number]. Bishnu Nava MD /nt
== END ==
LOC: M.PC 05:21
DX: Z76.0 Encounter for issue of repeat prescription (principal); G89.29 Other chronic pain; K51.90 Ulcerative colitis, unspecified, without complications; Z79.899 Other long term (current) drug therapy; Z88.8 Allergy status to other drugs, medicaments and biological substances; Z79.84 Long term (current) use of oral hypoglycemic drugs

== ENCOUNTER → 2019-07-22 | Outpatient (CLI) | payer MEDICARE, MEDICAID ==
[~2019-07-22] MED LIST changes: -PREDNISONE 10 M10 MG PO; +PREDNISONE 5 MG5 M1 PO
--- NOTE | 2019-07-30 09:09 | PAINCON ---
[address] [address] PAIN MANAGEMENT CONSULTATION Name: ULYSSES LOCKETT JR Room: [facility].#: [id number] Admission: 07/22/19 Attend Phys: Kaitlin Nava MD Discharge: Date of : 79 Report #: [id number] THIS REPORT FOR: //name// CC: GIULIANA Nava DATE OF SERVICE: 07/22/2019 CHIEF COMPLAINT: "Here for medication renewal and my Crohn's disease has acted up." HISTORY: The patient is a 43-year-old gentleman who has been followed in the pain clinic because of chronic pain. Has history of chronic pain involving Crohn's disease. He has been hospitalized because of it. He states that he did poorly for a while. He was started on additional prednisone. He was up at a very high dose, but has tapered down to about 5 mg daily at this point. He states that he had GI bleeding episode while in the hospital. He has been diagnosed with onset of diabetes. He has tried to keep active. He has had some significantly elevated blood sugars. They are in the process of trying to keep him under control. Has neuropathy in his feet. His toes are numb. Continues to monitor those for possibility of diabetic complications. As you may recall, he is unable to absorb the metformin because of his Crohn's disease. States he has been using insulin. He feels that his methadone medication continues to be helpful. Notes worsening of pain with such activities, walking, sitting, standing, climbing stairs, bending and lifting. He has returned today with the hopes of renewing his medications. He has heard about medical marijuana. He is not sure whether or not that would be an item for him, but would like to keep all his options open. ALLERGIES: LORAZEPAM, MERCAPTOPURINE, FENTANYL. CURRENT MEDICATIONS: Voltaren gel daily, Dilaudid 2 mg b.i.d., metformin 500 mg/insulin, Stelara, prednisone 5 mg daily. PAIN CLINIC ASSESSMENT AND PQRS: 1. The patient has some changes in his hands, hips and knees. The patient is being treated for rheumatoid arthritis. 2. Height 6 feet 2 inches, weight 264 pounds, BMI is 34. 3. Vital signs: Blood pressure is 134/88, heart rate is 95, respiratory rate 16, room air saturation 95%, temperature 98.5. 4. Pain intensity 5-6/10. 5. Fall history: The patient has not fallen in the last 3 months. Does complain of some feelings of lightheadedness throughout the day. 6. Blood thinner. The patient is not on a blood thinning medication. 7. Hypertension. The patient is [place] [address] PAIN MANAGEMENT CONSULTATION Name: ULYSSES LOCKETT JR Room: [facility]#: [id number] Admission: 07/22/19 Attend Phys: Kaitlin Nava MD Discharge: Date of : 79 Report #: [id number] 8. Risk assessment tool, low for opioid use. 9. Functional assessment tool. 10. Recreational drug use. The patient denies use of recreational drugs. 11. Tobacco: The patient chews tobacco. Benefits of tobacco use has been discussed. 12. Alcohol. The patient denies use of alcoholic beverages. PHYSICAL EXAMINATION: GENERAL: The patient is a well-developed, well-nourished white male. Appears his stated age. He is alert and oriented x 3. His affect is appropriate. Speech is fluent. HEENT: Normocephalic, atraumatic. Extraocular eye muscles intact. Sclerae nonicteric. Mucous membranes are moist. The patient has some increase change in his face consistent with chronic steroid use. NECK: Without adenopathy or JVD. CHEST: Clear to auscultation. HEART: Regular rate. S1, S2. ABDOMEN: Nontender. Bowel sounds. The patient has a J pouch. MUSCULOSKELETAL: Without significant scoliosis, kyphosis or lordosis. Upper extremity muscle strength judged to be 5-/5 for the major muscle groups and lower extremity 5-/5 for the major muscle groups in the lower extremity. The patient has some numbness and tingling in his feet. Has a well-healing right great toenail area, the patient with neuropathy in his feet. IMPRESSION: 1. Chronic pain with complex medical management using opioids. 2. History of Crohn's disease and ulcerative colitis. 3. Ulcerative colitis/J pouch. 4. Tachycardia. The patient will follow up with his primary physician in regards to the tachycardia of about 112 beats per minute. RECOMMENDATIONS: We discussed treatment options with the patient. At this juncture, we will continue with his medications. Risks and benefits of opioid medications were again discussed. They include possibility of less effectiveness over time because of development of tolerance, the possibility of addiction. The patient does not show any addictive properties. We will continue with our current medication using complex medical management to help control this pain. We would like to thank you for letting us participate in his care. We hope he continues to improve. The patient has some concerns/inquiry regarding the use of marijuana. We explained to the patient that line of [place] [address] PAIN MANAGEMENT CONSULTATION Name: ULYSSES LOCKETT Ligia MALDONADO Room: [facility]#: [id number] Admission: 07/22/19 Attend Phys: Kaitlin Nava MD Discharge: Date of : 77 Report #: [id number] We would like to thank you for letting us participate in his care. We hope he continues to improve. <ELECTRONICALLY SIGNED> By: Kaitlin Nava MD 07/30/19 0909 [id number]. Bishnu Nava MD /nt
== END ==
LOC: M.PC 05:52
DX: K50.90 Crohn's disease, unspecified, without complications (principal); R00.0 Tachycardia, unspecified; G89.29 Other chronic pain; Z79.891 Long term (current) use of opiate analgesic

== ENCOUNTER → 2019-10-14 | Outpatient (CLI) | payer MEDICARE, MEDICAID ==
--- NOTE | ~2019-10-14 | PAINCON ---
[address] [address] PAIN MANAGEMENT CONSULTATION Name: ULYSSES LOCKETT JR [id number] Admission: 10/14/19 Attend Phys: Kaitlin Nava MD Discharge: Date of : 77 Report #: [id number] THIS REPORT FOR: //name// CC: Valdo Nava DATE OF SERVICE: 10/14/2019 CHIEF COMPLAINT: Pain in the abdomen with Crohn's disease. HISTORY OF PRESENT ILLNESS: The patient is a 44-year-old gentleman, who has been seen in the Pain Clinic because of chronic pain. He suffers from Crohn's disease. He also has diabetes. He has noticed that his blood sugars have been somewhat difficult to keep under control. States that he has had blood sugars in the 500 level. We explained to him that this was very serious and should that happen, he should immediately seek medical attention. He has Crohn's disease. States that when he takes his pills, sometimes they come out the same way that they appeared when he took them, seemingly undigested. He has had some bleeding. He has been using steroids for some time to help control his situation. He feels that that in conjunction with his diabetes has caused higher blood sugars. Has had some pain in his back in the left and right kidney area. States that they were somewhat shooting pains. Has had renal stones in the past. States that he does drink quite a bit of pop. He drinks sugared pop. Notes that pain increases with certain activities. He rates his pain as a 7-8 today. Notes that with the cold weather, increased discomfort is experienced with walking, standing, lifting, bending. ALLERGIES: LORAZEPAM, MERCAPTOPURINE, FENTANYL. CURRENT MEDICATIONS: Voltaren gel daily, Dilaudid 2 mg b.i.d., metformin 500 mg, insulin, Stelara, prednisone 5 mg daily. PAIN CLINIC ASSESSMENT/PQRS: 1. The patient has some changes in his hands, hips and knees. He is being treated for rheumatoid arthritis. 2. Height 6 feet 2 inches, weight 276 pounds, BMI is 35.9. 3. Vital signs: Blood pressure 115/75, heart rate 128, respiratory rate 16, room air saturation is 94%, temperature 97.5. 4. Pain intensity score 7-8/10. 5. Fall history: The patient has not fallen in the last 3 months. 6. Blood thinner: The patient is not on a blood thinning medication. 7. Hypertension. The patient is not being treated for hypertension. 8. Risk assessment tool: Low for opioid use. 9. Functional assessment tool. 10. Recreational drug use: [place] [address] PAIN MANAGEMENT CONSULTATION Name: ULYSSES LOCKETT JR Room: [facility]#: [id number] Admission: 10/14/19 Attend Phys: Kaitlin Nava MD Discharge: Date of : 77 Report #: [id number] 11. Tobacco: The patient chews tobacco. We discussed the risks and benefits. 12. Alcohol. The patient denies use of alcoholic beverages. PHYSICAL EXAMINATION: GENERAL: The patient is a well-developed, well-nourished white male. Appears his stated age. He is alert and oriented x 3. His affect is appropriate. Speech is fluent. HEENT: Normocephalic, atraumatic. Extraocular eye muscles are intact. Sclerae are nonicteric. Mucous membranes are moist. The patient has some changes in his face, consistent with steroid use with increased fullness. NECK: Without adenopathy or JVD. CHEST: Clear to auscultation. HEART: Regular rate. ABDOMEN: Nontender. Bowel sounds present. The patient does have a J-pouch. MUSCULOSKELETAL: Without significant scoliosis, kyphosis or lordosis. Upper extremity muscle strength judged to be 5-/5 for the major muscle groups in the upper extremities. The patient has some numbness and tingling in his hands as well as in his feet. He states that he continues to monitor his feet in regards to the neuropathy and searches for breakdown. IMPRESSION: 1. Chronic pain with complex medical management, treated with opioids. 2. History of Crohn's disease and ulcerative colitis. 3. Ulcerative colitis with J-pouch. 4. Tachycardia. The patient is followed by his primary physician with regards to tachycardia, states that it was 128 today. RECOMMENDATIONS: We discussed treatment options with the patient. We explained that elevated blood sugars in the 500 range are critical. He should try to gain better control. We have explained to him the possibility of a coma associated with diabetes with the blood sugars this high. We discussed the pathophysiology of retinal changes, changes to the glomerulus and kidney, neuro changes associated with his peripheral nervous system. The patient states that he is going to work harder at getting his blood sugars under control. A script for Dilaudid 2 mg 1 p.o. b.i.d. has been rewritten. The patient will also continue with methadone 10 mg 2 tablets in the morning, 1 at noon and 2 at bedtime. He feels about 50% improvement in his pain with the use of his current medical regimen. We would like to thank you for letting us participate in his care. He will follow up with his primary in an effort to gain better control of his blood sugars. By: [id number]. Bishnu Nava MD /nt
== END ==
LOC: M.PC 07:59
DX: K50.90 Crohn's disease, unspecified, without complications (principal); E11.9 Type 2 diabetes mellitus without complications; G89.29 Other chronic pain; Z79.891 Long term (current) use of opiate analgesic; Z79.899 Other long term (current) drug therapy

== ENCOUNTER → 2020-01-06 | Outpatient (CLI) | payer MEDICARE ==
[~2020-01-06] MED LIST changes: +HUMALOG100 UNIT/1 SUBQ; +METFORMIN HCL500 M3 PO
--- NOTE | 2020-01-07 08:25 | PAINCON ---
[address] [address] PAIN MANAGEMENT CONSULTATION Name: ULYSSES LOCKETT JR Room: [facility]#: [id number] Admission: 01/06/20 Attend Phys: Kaitlin Nava MD Discharge: Date of : 79 Report #: [id number] THIS REPORT FOR: //name// cc: Valdo Hurtado MD, Ammon L. MD ~ THIS REPORT FOR: //name// CC: Valdo Nava DATE OF SERVICE: 01/06/2020 CHIEF COMPLAINT: Abdominal pain associated with Crohn's disease. HISTORY OF PRESENT ILLNESS: The patient is a 44-year-old gentleman who has been followed in the Pain Clinic because of chronic pain. As you may recall, he has had surgery because of Crohn's disease. Continues to have abdominal pain, which is problematic. He rates it as a 5-6. It involves the abdominal area. He states he does have a J-pouch inside. He notes that sometimes the pain is in the area of his back. He does continue to have some bloody stools quite frequently. He has been noticing some elevated blood sugars in the 300 range. He has found it difficult to get his sugars down into a more normal range. He is scheduled to see an police detective in the near future. He has returned today and would like to continue with his medications. He has some joint pain as well. He feels that his pain is about 50% improved with use of his current medical regimen. Activity, walking, sitting, standing, bending, and lifting can exacerbate his discomfort. He rates his pain today as a 10/10. ALLERGIES: LORAZEPAM, MERCAPTOPURINE, FENTANYL. CURRENT MEDICATIONS: Voltaren gel to the affected area, Dilaudid 2 mg b.i.d., metformin 500 mg, insulin, Stelara, prednisone 5 mg daily, methadone 10 mg 1 p.o. at noon, and 2 tablets a.m., 2 tablets at bedtime, total of 50 mg of methadone daily. PAIN CLINIC ASSESSMENT AND PQRS: 1. The patient does have some pain in his hands, hips and knees. He is being treated for rheumatoid arthritis. 2. Height 6 feet 2 inches, weight 284 pounds, BMI is 36. 3. Vital signs: Blood pressure is 126/96, heart rate 120, respiratory rate 16, room air saturation 98%. 4. Pain intensity is 10/10. 5. Fall history: The patient has not fallen in the last 3 months. 6. Blood thinner. The patient is not on a blood thinning medication. 7. Hypertension. The patient is not being treated for hypertension. 8. Opioids from the last 6 weeks. The [place] [address] PAIN MANAGEMENT CONSULTATION Name: ULYSSES LOCKETT JR Room: [facility]#: [id number] Admission: 01/06/20 Attend Phys: Kaitlin Nava MD Discharge: Date of : 77 Report #: [id number] source the Pain Clinic. 9. Functional assessment tool, reviewed. 10. Tobacco: The patient chews tobacco. We discussed the benefits of chewing cessation. 11. Alcohol. The patient denies use of alcoholic beverages. PHYSICAL EXAMINATION: GENERAL: The patient is a well-developed, well-nourished white male. Appears his stated age. He is alert and oriented x 3. His affect is appropriate. Speech is fluent. HEENT: Normocephalic, atraumatic. Extraocular eye muscles intact. Sclerae nonicteric. Mucous membranes are moist. Does have some fullness in his face associated with steroid use. NECK: Without adenopathy or JVD. CHEST: Clear to auscultation. HEART: Regular rate. ABDOMEN: Complains of some tenderness. Has some discomfort in the area of the J-pouch. MUSCULOSKELETAL: Without significant scoliosis, kyphosis or lordosis. Upper extremity muscle strength judged to be 5-/5 for the major muscle groups in the upper extremity. The patient has some numbness and tingling in his hands as well as in his feet. Continues to monitor his feet in regards to neuropathy and ____ breakdown. IMPRESSION: 1. Chronic pain with complex medical management, treating with opioids. 2. History of Crohn's disease and ulcerative colitis. 3. Ulcerative colitis with J-pouch. 4. Tachycardia, heart rate 120. 5. Elevated blood sugars 300-350 range. The patient to follow up with police detective immediately. RECOMMENDATIONS: We discussed treatment options with the patient. At this juncture, he would like to continue with his medications. He feels that his medications are helpful. He feels that the hydrocodone as well as the methadone continue to be beneficial. He has been having quite a difficult time with his blood sugars. He states that his blood sugars can be in the neighborhood of 350s and finds it difficult to get him down to a lower dosing level. He states that he is to follow up with an police detective in the near future. He has not made contact with it. We discussed the risks and benefits of the elevated blood sugars with the patient. He is aware of the cardiovascular, neuropathy, and problems with increased susceptibility to infections associated with elevated blood sugars. He states that he is monitoring his feet. He is aware that the COVID-19 can be quite problematic in patients with problems similar to he has. He is staying home and observance of the [facility]pc at home requests. A script for his medications of methadone 10 mg 2 tablets a.m., one tablet at noon, and [address] [place] [address] PAIN MANAGEMENT CONSULTATION Name: ULYSSES LOCKETT JR Room: [facility]#: [id number] Admission: 01/06/20 Attend Phys: Kaitlin Nava MD Discharge: Date of : 79 Report #: [id number] tablets at bedtime have been provided. The patient will also continue with the hydrocodone 2 mg 1 p.o. b.i.d. We would like to thank you for letting us participate in his care. Hope he continues to improve. <ELECTRONICALLY SIGNED> By: Kaitlin Nava MD 01/07/20 0825 1600 [id number]. Bishnu Nava MD /nt
== END ==
LOC: M.PC 04:39
DX: R10.9 Unspecified abdominal pain (principal); K50.90 Crohn's disease, unspecified, without complications; G89.29 Other chronic pain; F11.20 Opioid dependence, uncomplicated; K51.90 Ulcerative colitis, unspecified, without complications; R00.0 Tachycardia, unspecified; R73.9 Hyperglycemia, unspecified; I10 Essential (primary) hypertension; Z79.899 Other long term (current) drug therapy; Z88.8 Allergy status to other drugs, medicaments and biological substances

== ENCOUNTER → 2020-03-30 | Outpatient (CLI) | payer MEDICARE ==
[~2020-03-30] MED LIST changes: +LISINOPRIL PO; +LONG ACTING INSULIN SUBQ; +NEURONTIN 300M300 M2 PO
--- NOTE | 2020-04-15 15:59 | PAINCON ---
[address] [address] PAIN MANAGEMENT CONSULTATION Name: ULYSSES LOCKETT JR Room: [facility]#: [id number] Admission: 03/30/20 Attend Phys: Kaitlin Nava MD Discharge: Date of : 79 Report #: [id number] THIS REPORT FOR: //name// cc: Valdo Hurtado MD, Ammon L. MD ~ THIS REPORT FOR: //name// CC: Valdo Nava DATE OF SERVICE: 03/30/2020 CHIEF COMPLAINT: Crohn's disease and joint pain. HISTORY: The patient is a 44-year-old gentleman who has been followed in the pain clinic because of chronic pain associated with Crohn's disease. He has significant abdominal discomfort and has had this for a number of years. He also has some pain in his joints. He has noticed his blood sugars, which continues to be in the 300-400 range daily. He is following up with his primary physician. He has numbness in his feet. Rates his pain as a 4/10 today. He is aware of significant constellation of problems associated with elevated blood sugars. He is trying to regulate it better. He notes the pain is problematic with prolonged sitting, standing, climbing stairs, bending, and lifting. Notes that his pain does improve with use of his medications as well as with rest. He has returned today with hopes of having his medications renewed. ALLERGIES: LORAZEPAM, MERCAPTOPURINE, FENTANYL. CURRENT MEDICATIONS: Voltaren gel to the affected area, Dilaudid 2 mg b.i.d., metformin 500 mg, insulin, Stelara, prednisone 5 mg daily, methadone 10 mg 1 p.o. at noon, 2 tablets at bedtime, 2 tablets in a.m., total of 50 mg of methadone daily. PAIN CLINIC ASSESSMENT AND PQRS: 1. The patient has some pain in his hands, knees, and hips. He is being treated for rheumatoid arthritis. 2. Height 6 feet 2 inches, weight 291 pounds, BMI is 37.3. 3. Vital signs: Blood pressure 140/93, heart rate 115, respiratory rate 18, pulmonary saturation 97%, temperature 97.9. 4. Pain intensity 10. 5. Fall history: The patient has not fallen in the last 3 months. 6. Blood thinner. The patient is not being treated for hypertension. 7. Opioids greater than 6 weeks, the patient receives medication from the pain clinic. 8. Functional assessment tool, reviewed. 9. Recreational drug [place] [address] PAIN MANAGEMENT CONSULTATION Name: ULYSSES LOCKETT JR Room: [facility]#: [id number] Admission: 03/30/20 Attend Phys: aKitlin Nava MD Discharge: Date of : 79 Report #: [id number] 10. Tobacco: The patient chews tobacco, we discussed the benefits of chewing cessation. 11. Alcohol. The patient denies use of alcoholic beverages. PHYSICAL EXAMINATION: GENERAL: The patient is a well-developed, well-nourished white male. Appears his stated age. He is alert and oriented x 3. His affect is appropriate. Speech is fluent. HEENT: Normocephalic, atraumatic. Extraocular eye muscles intact. Sclerae nonicteric. Mucous membranes are moist. The patient does have some fullness in his face associated with steroid use. He is wearing a mask. NECK: Without adenopathy or JVD. CHEST: Clear to auscultation. HEART: Regular rate. Tachycardic at 115. ABDOMEN: Complains of some tenderness. Has some discomfort in the area of the J-pouch. MUSCULOSKELETAL: The patient without significant scoliosis, kyphosis or lordosis. Upper extremity muscle strength judged to be 5-/5 for the major muscle groups in the upper extremity. The patient has numbness and tingling in his hands as well as in his feet in a stocking glove distribution. States that he continues to monitor his feet in regards to neuropathy and watches for skin breakdown. IMPRESSION: 1. Chronic pain with complex medical management, treated with opioids. 2. History of Crohn's disease and ulcerative colitis. 3. Ulcerative colitis with J-pouch. 4. History of tachycardia, heart rate in the 110s-120s. 5. Elevated blood sugars 300-350 range. The patient continues to be followed by his pad cutter. RECOMMENDATIONS: We discussed treatment options with the patient. At this juncture, we will continue with his medications. Again, we had a long talk in regards to the problems with elevated glucose levels. These can affect all of the cardiovascular organs, eyes, and vision may be impacted. The patient is aware of the kidney association heart problems and peripheral vascular problems. He states that his A1c in the past was about 12. Does have a long history of Crohn's disease since about 15 years' duration. Notes that his physical stamina is low. He becomes quite out of breath after one level of stairs. He is very concerned about the nuno virus given his comorbidities. He is just staying at home. A script for his medications have been rewritten. We will continue with hydromorphone 2 mg 1 p.o. b.i.d. We will also continue with methadone 10 mg, total of 5 tablets per day, as prescribed in the history above. He will call us if he has any concerns. He will continue to monitor his blood [place] [address] PAIN MANAGEMENT CONSULTATION Name: ULYSSES LOCKETT JR Room: [facility]#: [id number] Admission: 03/30/20 Attend Phys: Kaitlin Nava MD Discharge: Date of : 79 Report #: [id number] up with his primary physician. We would like to thank you for letting us participate in his care. We hope he continues to improve. <ELECTRONICALLY SIGNED> By: Kaitlin Nava MD 04/15/20 1559 [id number]. Bishnu Nava MD /nt
== END ==
LOC: M.PC 04:48
PROVIDERS: ATTEND Anesthesiology Pain Medicine
DX: K50.90 Crohn's disease, unspecified, without complications (principal); M25.50 Pain in unspecified joint; G89.29 Other chronic pain; R73.9 Hyperglycemia, unspecified; Z86.79 Personal history of other diseases of the circulatory system; Z79.899 Other long term (current) drug therapy

== ENCOUNTER → 2020-06-22 | Outpatient (CLI) | payer MEDICARE ==
--- NOTE | 2020-06-23 09:50 | PAINCON ---
[address] [address] PAIN MANAGEMENT CONSULTATION Name: ULYSSES LOCKETT JR Room: [facility]#: [id number] Admission: 06/22/20 Attend Phys: Kaitlin Nava MD Discharge: Date of : 79 Report #: [id number] THIS REPORT FOR: //name// cc: Valdo Hurtado MD, Ammon L. MD ~ THIS REPORT FOR: //name// CC: Valdo Nava DATE OF SERVICE: 06/22/2020 CHIEF COMPLAINT: Crohn's disease and diabetes have been pretty bad. HISTORY: The patient is a 44-year-old gentleman who has been followed in the pain clinic. As you know, he suffers from Crohn's disease. He has had significant abdominal discomfort. This has been problematic over the years. He also has joint pain. He returns today with pain, which is generalized. He also has been having abdominal discomfort. He has noted an elevation in blood sugars 250/ 450. He has been experiencing an increased heart rate in the 140s. He has also been treated for elevated blood pressures. He also has reported some blood in his stools. He has sought the help from an travel attendants. He states that he has contacted them, but has not made an official visit to be followed by an travel attendants at this point. He states that he has noticed the need to pursue this, given his elevated blood pressures and heart rate. He has returned today for renewal of his medications. ALLERGIES: LORAZEPAM, MERCAPTOPURINE, FENTANYL. CURRENT MEDICATIONS: Voltaren gel to the affected area, Dilaudid 20 mg b.i.d., metformin 500 mg, insulin, Stelara, prednisone 5 mg daily, methadone 10 mg at noon 2 tablets at bedtime, 2 tablets a.m. for a total of 50 mg of methadone daily. PAIN CLINIC ASSESSMENT AND PQRS: 1. The patient has some pain in his hands, knees and hips. He is being treated for rheumatoid arthritis. 2. Height 6 feet 2 inches, weight 282 pounds, BMI is 36. 3. Vital Signs: Blood pressure 146/89, heart rate 140, respiratory rate 20, room air saturation is 93%, temperature 97.2. 4. Pain intensity 6-810. 5. Fall history: The patient has not fallen in the last 3 months. 6. Blood thinner. The patient is not on a blood thinning medication. 7. Hypertension. The patient is being treated for hypertension. 8. Opioids greater than 6 weeks. The patient receives medication [place] [address] PAIN MANAGEMENT CONSULTATION Name: ULYSSES LOCKETT JR Room: [facility]#: [id number] Admission: 06/22/20 Attend Phys: Kaitlin Nava MD Discharge: Date of : 79 Report #: [id number] 9. Risk assessment tool, low for opioid use. 10. Functional assessment tool reviewed. 11. Recreational drug use. The patient denies. 12. Tobacco: The patient does chew tobacco. 13. Alcohol: The patient denies use of alcoholic beverages. PHYSICAL EXAMINATION: GENERAL: The patient is a well-developed, well-nourished white male. Appears his stated age. He is alert and oriented x 3. His affect is appropriate. Speech is fluent. HEENT: Normocephalic, atraumatic. Extraocular eye muscles intact. Sclerae nonicteric. Mucous membranes are moist. The patient is wearing a facial covering. Has fullness in his face associated with chronic steroid use. NECK: Without adenopathy or JVD. HEART: Tachycardic at 140. CHEST: Generally clear. ABDOMEN: Some discomfort in the area of the J-pouch. MUSCULOSKELETAL: The patient without significant scoliosis, kyphosis or lordosis. Upper extremity muscle strength judged to be 5-/5 for the major muscle groups in the upper extremity. The patient has numbness and tingling stocking/glove distribution. The patient also has some changes in his right foot. Appears to have some athlete's foot fungus problems. IMPRESSION: 1. Chronic pain with complex medical management, treated with opioids. 2. Elevated blood sugars 300-450 range. The patient is going to contact and make contact with an travel attendants. 3. History of Crohn's disease and ulcerative colitis. Has noted blood in his stools in the past. 4. History of tachycardia 100-120 range. The patient states that his pain is more problematic than he has in the past and he feels that is why his heart rate because of the pain is 140. We explained to him the significance of tachycardia and that this needs to be evaluated by his primary/a boom operator/travel attendants. RECOMMENDATIONS: We discussed treatment options with the patient. At this juncture, we will continue with his medications. The patient is aware that opioid medications can become less effective as time goes on. He does feel that these medications continue to be beneficial and he would like to continue their use. He will continue with methadone 10 mg 2 tablets a.m., one midday and 2 tablets at bedtime for a total of 50 mg daily. He will also use Dilaudid 2 mg p.o. b.i.d. The patient will also continue with prednisone per his physician's direction. We have discussed the problems associated with diabetes, which could include kidney problems as well as heart problems and peripheral vascular disease. We would recommend that the patient continues to take this health warning seriously. He states that he has had an A1c in the past was 12. [place] [address] PAIN MANAGEMENT CONSULTATION Name: ULYSSES LOCKETT JR Room: [facility]#: [id number] Admission: 06/22/20 Attend Phys: Kaitlin Nava MD Discharge: Date of : 79 Report #: [id number] patient is staying at home because of Raza virus. We would like to thank you for letting us participate in his care. We would recommend that he refrain from chewing tobacco. Because of the possible complications associated with oral cancers. <ELECTRONICALLY SIGNED> By: Kaitlin Nava MD 06/23/20 [id number] [id number]. Bishnu Nava MD /[facility]
== END ==
LOC: M.PC 08:04
PROVIDERS: ATTEND Anesthesiology Pain Medicine
DX: K50.90 Crohn's disease, unspecified, without complications (principal); E11.9 Type 2 diabetes mellitus without complications; F11.20 Opioid dependence, uncomplicated; Z86.79 Personal history of other diseases of the circulatory system

== ENCOUNTER → 2020-09-14 | Outpatient (CLI) | payer MEDICARE, MEDICAID | LOC: M.PC 08:10 | PROVIDERS: ATTEND Anesthesiology Pain Medicine | DX: K50.90 Crohn's disease, unspecified, without complications (principal); E11.9 Type 2 diabetes mellitus without complications; G89.29 Other chronic pain; Z88.8 Allergy status to other drugs, medicaments and biological substances ==

== ENCOUNTER → 2020-12-07 | Outpatient (CLI) | payer MEDICARE, MEDICAID | LOC: M.PC 07:49 | PROVIDERS: ATTEND Anesthesiology Pain Medicine | DX: K50.90 Crohn's disease, unspecified, without complications (principal); G89.29 Other chronic pain; E11.9 Type 2 diabetes mellitus without complications; F11.20 Opioid dependence, uncomplicated; Z79.899 Other long term (current) drug therapy ==

== ENCOUNTER → 2021-03-01 | Outpatient (CLI) | payer MEDICARE, MEDICAID | LOC: M.PC 07:43 | PROVIDERS: ATTEND Anesthesiology Pain Medicine | DX: G89.29 Other chronic pain (principal); K50.90 Crohn's disease, unspecified, without complications; E11.9 Type 2 diabetes mellitus without complications; Z68.35 Body mass index [BMI] 35.0-35.9, adult; R07.89 Other chest pain; Z88.8 Allergy status to other drugs, medicaments and biological substances; Z79.891 Long term (current) use of opiate analgesic; Z79.899 Other long term (current) drug therapy ==

== ENCOUNTER → 2021-05-24 | Outpatient (CLI) | payer MEDICARE, MEDICAID | LOC: M.PC 08:00 | PROVIDERS: ATTEND Anesthesiology Pain Medicine | DX: R10.9 Unspecified abdominal pain (principal); G89.29 Other chronic pain; K50.90 Crohn's disease, unspecified, without complications; R00.0 Tachycardia, unspecified; Z79.891 Long term (current) use of opiate analgesic ==

== ENCOUNTER → 2021-08-16 | Outpatient (CLI) | payer MEDICARE, MEDICAID | LOC: M.PC 07:53 | PROVIDERS: ATTEND Anesthesiology Pain Medicine | DX: G89.29 Other chronic pain (principal); K50.90 Crohn's disease, unspecified, without complications; E11.9 Type 2 diabetes mellitus without complications; R10.9 Unspecified abdominal pain; Z79.4 Long term (current) use of insulin; Z88.8 Allergy status to other drugs, medicaments and biological substances; Z79.899 Other long term (current) drug therapy ==

== ENCOUNTER → 2021-11-08 | Outpatient (CLI) | payer MEDICARE, MEDICAID ==
[~2021-11-08] MED LIST changes: +ASPIRIN EC325 M1 PO; +COZAAR 25 MG TA25 M1 PO; +HYDROCHLOROTH12.5 M2 PO
== END ==
LOC: M.PC 07:38
PROVIDERS: ATTEND Anesthesiology Pain Medicine
DX: G89.29 Other chronic pain (principal); K50.90 Crohn's disease, unspecified, without complications; E11.9 Type 2 diabetes mellitus without complications; R10.9 Unspecified abdominal pain; Z79.82 Long term (current) use of aspirin; Z79.4 Long term (current) use of insulin; Z88.8 Allergy status to other drugs, medicaments and biological substances